=== PATIENT | female | born 1935 | race Caucasian/White ===

== ENCOUNTER → 2019-03-24 | Outpatient (CLI) | payer MEDICARE ==
--- NOTE | 2019-03-27 19:45 | ECHOF ---
Referral Reason:R01.1 Cardiac murmur MEASUREMENTS -------- HEIGHT: 152.4 cm WEIGHT: 68.0 kg BP: 159/72 IVSd: 1.0 cm (0.6 - 1.1) LVIDd: 4.8 cm (3.9 - 5.3) LVPWd: 0.9 cm (0.6 - 1.1) IVSs: 1.4 cm LVIDs: 2.4 cm LVPWs: 1.5 cm LA Diam: 2.9 cm (2.7 - 3.8) RVIDd: 2.6 cm (< 3.3) LAESV Index (A-L): 25.75 ml/m Ao Diam: 3.1 cm (2.0 - 3.7) AV Cusp: 1.8 cm (1.5 - 2.6) EPSS: 0.7 cm MV E Edwin: 1.05 m/s MV DecT: 317 ms MV A Edwin: 1.18 m/s MV E/A Ratio: 0.89 AR PHT: 597 ms RAP: 5.00 mmHg RVSP: 31.76 mmHg MV EF SLOPE: 25.81 mm/s (70 - 150) MV EXCURSION: 9.59 mm (> 18.000) FINDINGS -------- Sinus rhythm. This was a technically good study. The left ventricular size is normal. Left ventricular wall thickness is normal. Overall left vent ricular systolic function is normal with, an EF between 60 - 65 %. The right ventricle is normal in size. Normal LA size by volume 22+/-6 ml/m2. The right atrium is normal in size. Interatrial and interventricular septum intact. There is mild aortic valve sclerosis. There is mild aortic regurgitation. The mitral valve leaflets are mildly thickened. Mild mitral annular calcification present. Mild tricuspid regurgitation present. Right ventricular systolic pressure is normal at < 35 mmHg. Trace/mild (physiologic) pulmonic regurgitation. The aortic root size is normal. Normal inferior vena cava with normal inspiratory collapse consistent with estimated right atrial pre ssure of 5 mmHg. There is no pericardial effusion. CONCLUSIONS -------- 1. Sinus rhythm. 2. This was a technically good study. 3. The left ventricular size is normal. 4. Left ventricular wall thickness is normal. 5. Overall left ventricular systolic function is normal with, an EF between 60 - 65 %. 6. The right ventricle is normal in size. 7. Normal LA size by volume 22+/-6 ml/m2. 8. The right atrium is normal in size. 9. Interatrial and interventricular septum intact. 10. There is mild aortic valve sclerosis. 11. There is mild aortic regurgitation. 12. The mitral valve leaflets are mildly thickened. 13. Mild mitral annular calcification present. 14. Mild tricuspid regurgitation present. 15. Right ventricular systolic pressure is normal at < 35 mmHg. 16. Trace/mild (physiologic) pulmonic regurgitation. 17. The aortic root size is normal. 18. Normal inferior vena cava with normal inspiratory collapse consistent with estimated right atrial pressure of 5 mmHg. 19. There is no pericardial effusion. RING SPINNER: Gay Azar RDCS
== END | disposition home or self-care (01) ==
LOC: RADECHMAIN 12:39
PROVIDERS: ATTEND Nurse Practitioner
DX: I35.8 Other nonrheumatic aortic valve disorders (principal); I37.1 Nonrheumatic pulmonary valve insufficiency
CPT/HCPCS: 93306

== ENCOUNTER → 2019-05-01 | Outpatient (CLI) | payer MEDICARE ==
--- NOTE | 2019-05-01 16:08 | CT ---
EXAMINATION TYPE: CT abdomen pelvis w con DATE OF EXAM: 05/01/2019 COMPARISON: 05/01/2016 INDICATION: Right upper quadrant pain DLP: 1174 mGycm, Automated exposure control for dose reduction was used. CONTRAST: 100 ml mL of Isovue 300. Study performed with Oral Contrast TECHNIQUE: Axial images were obtained from above the diaphragm to the pubic rami in the axial plane a t 5 mm thick sections. Reconstructed images are reviewed on the computer in the coronal plane. FINDINGS: Limited CT sections are obtained the lung bases. The lung bases are clear. CT ABDOMEN: Liver: On postcontrast images there is a subtle ill-defined hypodensity adjacent to the ligamentum te res measuring 2.9 cm. This area has normal density on postcontrast imaging. This area appears to gautam espond to an area of enhancement on a prior study. Findings could be related to hemangioma at this le dontae. Correlate with the patient's history. MRI with contrast could be performed if additional evaluat ion would be of benefit. Spleen: Absent Pancreas: Normal Adrenal glands: The adrenal glands are normal. Gallbladder: Surgically absent Kidneys: No masses are evident. No hydronephrosis is present. No cysts are present. Delayed images were obtained through the kidneys, which remain unremarkable. Aorta: Vascular calcification is within the aorta. Inferior vena cava: Normal. CT PELVIS: Diverticular changes within the sigmoid colon. No acute diverticulitis is evident. No suspicious dila mejia loops of bowel are evident. Oral contrast extends to the distal small bowel loops. There are loop s of bowel which are incompletely distended or lack oral contrast limiting their evaluation. Appendix: Not identified. No suspicious inflammatory changes evident. Urinary bladder: Normal. Genitourinary structures: Uterus and ovaries are not identified. Osseous structures: No suspicious lytic or sclerotic lesions. Degenerative disc changes are in the lo wer lumbar spine IMPRESSIONS: 1. Subtle hypodensity on noncontrast imaging which has normal appearance on postcontrast imaging. Th is area may have had prior enhancement. Has this patient had any treatment for this finding?. Finding could be related to a benign hemangioma. With a history of neoplasm, metastatic disease would have t o be considered. As contrast MRI is available if additional evaluation is required. 2. Diverticulosis without acute diverticulitis
== END | disposition home or self-care (01) ==
LOC: RADCTMAIN 09:04
PROVIDERS: ATTEND Family Medicine
DX: K57.30 Diverticulosis of large intestine without perforation or abscess without bleeding (principal); R10.11 Right upper quadrant pain
CPT/HCPCS: 74177; 36415; Q9967 ×2

== ENCOUNTER → 2019-05-13 | Outpatient (CLI) | payer MEDICARE ==
--- NOTE | 2019-05-15 02:28 | MR ---
EXAMINATION TYPE: MR abdomen wo/w con DATE OF EXAM: 05/13/2019 COMPARISON: HISTORY: Abnormal findings on diagnostic imaging Abnormal liver CONTRAST: Standard multiplanar, multisequence MRI departmental protocol utilizing 7 mL intravenous Gadavist haley olinium contrast. FINDINGS: Liver has normal size and contour. Spleen is absent. There is linear density at the lung ba ses consistent with atelectasis and scarring. There is no pleural effusion. Heart appears enlarged. Pancreas is not definitely seen. There is no evidence of a renal mass. There is no hydronephrosis. Th ere is some air in the biliary tree. There is no ascites. There is no adrenal mass. There is a 4.5 cm somewhat geographic area of nodular enhancement in the anterior right lobe of the l iver. There is similar focus also smaller in the posterior medial right lobe of the liver. This shows progressive enhancement on the delayed contrast images and consistent with hemangioma. Gallbladder is absent. IMPRESSION: Geographic area of delayed enhancement in the anterior right lobe of the liver is consistent with hem angioma. There is a similar triangular 3 x 2 cm area in the posterior right lobe of the liver also co nsistent with a second hemangioma. I do not suspect metastatic disease. Mild scarring and subsegmental atelectasis at the lung bases. Abdomen appears unchanged compared to C T scan of 05/01/2019.
== END | disposition home or self-care (01) ==
LOC: RADMRIMAIN 12:40
PROVIDERS: ATTEND Family Medicine
DX: D18.09 Hemangioma of other sites (principal)
CPT/HCPCS: 74183; A9585